=== PATIENT | male | born 1975 | race Caucasian/White ===

== ENCOUNTER 2021-06-17 18:13 | Emergency (ER) | payer OTHER ==
[~2021-06-17 18:13] MED LIST: Ketorolac 30 MG/ML SDV IVPUSH ONE
[2021-06-17] MEDS ORDERED: Sodium Chloride 0.9% 1,000 ML IV ONE (18:15)
[2021-06-17] MEDS ORDERED: Gabapentin 300 MG Cap PO ONE (18:30)
[2021-06-17] MEDS ORDERED: valACYclovir 500 MG Tab PO ONE (18:30)
[2021-06-17] MEDS ORDERED: prednisoLONE Acetate 1% Ophth Susp 5 ML Bottle EYERT SCH (18:40)
[2021-06-17] MEDS ORDERED: Gabapentin 100 MG Cap PO ONE (18:49)
--- NOTE | 2021-06-17 18:52 | EDM.PDOC ---
ED HPI GENERAL MEDICAL PROBLEM - General Chief Complaint: General Stated Complaint: Headache Time Seen by Provider: 06/17/21 18:25 Source of Information: Reports: Patient History Limitations: Reports: No Limitations - History of Present Illness INITIAL COMMENTS - FREE TEXT/NARRATIVE: Eduardo is a 45 year old male who presents to ER with complaints of severe headache since yesterday. Was seen in the ER last night in [place] for same concern. Had CT scan of head and sinus as well as labs which were all normal. As blood pressure was mildly high, was told to restart his HCTZ. Pain has been intense today and now has an infection to his eyelid as well. Denies any visual changes. Did put triple antibiotic ointment to the area today to help soothe the area. Eyelid has become red, swollen and his eye has been tearing. Has taken tylenol and ibuprofen but nothing has helped the headache. worried that he could be having a stroke. Denies any weakness in his arms or legs, no facial droop. No dysphagia. Onset: Gradual Duration: Day(s):, Constant Location: Reports: Head Quality: Reports: Burning Severity: Severe Improves with: Reports: None Associated Symptoms: Reports: Malaise. Denies: Confusion, Chest Pain, Cough, Fever/Chills, Loss of Appetite, Nausea/Vomiting, Shortness of Breath Headache Pain Score (Numeric/FACES): 7 - Related Data Allergies Allergy/AdvReac Type Severity Reaction Status Date / Time No Known Allergies Allergy Verified 06/17/21 18:21 Home Meds: Home Meds Gabapentin [Neurontin] 100 mg PO TID #60 cap 06/17/21 [Rx] hydroCHLOROthiazide [Hydrochlorothiazide] 12.5 mg PO DAILY PRN 06/17/21 [History] valACYclovir [Valtrex] 1,000 mg PO BID #14 tablet 06/17/21 [Rx] Past Medical History Cardiovascular History: Reports: Hypertension Respiratory History: Reports: Sleep Apnea Other Respiratory History: uses CPAP Musculoskeletal History: Reports: Fracture Other Musculoskeletal History: history of wrist and finger fx - Past Surgical History GI Surgical History: Reports: Appendectomy Social & Family History - Family History Family Medical History: No Pertinent Family History - Tobacco Use Tobacco Use Status *Q: Never Tobacco User ED ROS GENERAL - Review of Systems Review Of Systems: See Below Constitutional: Reports: Malaise. Denies: Fever, Chills, Weakness, Fatigue, Dec reased Appetite HEENT: Reports: Eye Pain. Denies: Ear Pain, Rhinitis, Sinus Problem, Throat Pain, Vision Change Respiratory: Denies: Shortness of Breath, Cough Cardiovascular: Denies: Chest Pain, Edema, Lightheadedness Endocrine: Denies: Fatigue GI/Abdominal: Denies: Abdominal Pain, Constipation, Diarrhea, Nausea, Vomiting : Reports: No Symptoms Musculoskeletal: Reports: No Symptoms Skin: Reports: Rash Neurological: Reports: No Symptoms Psychiatric: Reports: No Symptoms ED EXAM, GENERAL - Physical Exam Exam: See Below Exam Limited By: No Limitations General Appearance: Alert, WD/WN, Mild Distress Eye Exam: Right Eye: Conjunctival Injection, Bilateral Eye: EOMI, PERRL, Vision Changes Ears: Normal External Exam, Normal TMs Nose: Normal Inspection, Normal Mucosa, No Blood Throat/Mouth: Normal Inspection, Normal Oropharynx Head: Normocephalic Neck: Normal Inspection, Supple, Non-Tender Respiratory/Chest: No Respiratory Distress, Lungs Clear, Normal Breath Sounds Cardiovascular: Regular Rate, Rhythm Neurological: Alert, Oriented, CN II-XII Intact, Normal Cognition, Normal Gait, Normal Reflexes, No Motor/Sensory Deficits Skin Exam: Zoster-Like Rash (patient has raised red lesions to forehead, right side of head an vesicular lesions to right eye lid. Does have swelling and ) Course - Vital Signs Last Recorded V/S: Last Vital Signs Temp 97.6 F 06/17/21 18:17 Pulse 62 06/17/21 18:17 Resp 18 06/17/21 18:17 BP 161/86 H 06/17/21 18:17 Pulse Ox 95 06/17/21 18:17 - Orders/Labs/Meds Orders: Active Orders 24 hr Category Date Time Status prednisoLONE acetate [Pred Forte 1% Ophth Susp] Med 06/17/21 18:40 Ordered See Dose Instructions EYERT QID Medication Orders Prednisolone Acetate (Prednisolone Acetate 1% Ophth Susp 5 Ml Bottle) 0 ml EYERT QID STORM Meds: Medications Generic Name Dose Route Start Last Admin Trade Name Freq PRN Reason Stop Dose Admin Prednisolone Acetate 0 ml 06/17/21 18:40 Prednisolone Acetate 1% Ophth Susp 5 Ml Bottle EYERT QID STORM Discontinued Medications Generic Name Dose Route Start Last Admin Trade Name Freq PRN Reason Stop Dose Admin Gabapentin 300 mg 06/17/21 18:30 06/17/21 18:35 Gabapentin 300 Mg Cap PO 06/17/21 18:31 300 mg ONETIME ONE Administration Gabapentin 100 mg 06/17/21 18:49 Gabapentin 100 Mg Cap PO 06/17/21 18:50 ONETIME ONE Sodium Chloride 1,000 mls @ 250 mls/hr 06/17/21 18:15 Normal Saline IV 06/17/21 22:14 ONETIME ONE Ketorolac Tromethamine 30 mg 06/17/21 18:13 Ketorolac 30 Mg/Ml Sdv IVPUSH 06/17/21 18:14 ONETIME ONE Valacyclovir HCl 1,000 mg 06/17/21 18:30 06/17/21 18:35 Valacyclovir 500 Mg Tab PO 06/17/21 18:31 1,000 mg ONETIME ONE Administration - Re-Assessments/Exams Free Text/Narrative Re-Assessment/Exam: 06/17/21 Discussed zoster with patient. Will need to see an eye doctor in the am if possible for more specific exam as unable to visualize a dendritic lesion to eye. Will start prednisolone drops tonight. Departure - Departure Time of Disposition: 18:51 Disposition: Home, Self-Care 01 Condition: Fair Clinical Impression: Herpes zoster Qualifiers: Herpes zoster complications: with ocular involvement Herpes zoster ocular complication detail: conjunctivitis Qualified Code(s): B02.31 - Zoster conjunctivitis - Discharge Information *PRESCRIPTION DRUG MONITORING PROGRAM REVIEWED*: No *COPY OF PRESCRIPTION DRUG MONITORING REPORT IN PATIENT NAYELI: No Prescriptions: Gabapentin [Neurontin] 100 mg PO TID #60 cap valACYclovir [Valtrex] 1,000 mg PO BID #14 tablet Instructions: Shingles Referrals: Iraj Tavares MD [Primary Care Provider] - Forms: ED Department Discharge Additional Instructions: 1. Hydrocortisone cream to rash as needed 2. Gabapentin 100 mg~ 1 tab in am, 1 tab in afternoon, 3 at bedtime 3. Valtrex 1 gm twice a day for 7 days 4. Prednisolone 1-2 drops to right eye four times a day 5. See eye doctor as soon as able 6. Follow up if any persisting concerns. Sepsis Event Note (ED) - Evaluation Sepsis Screening Result: No Definite Risk - Focused Exam Vital Signs: Vital Signs Temp Pulse Resp BP Pulse Ox 06/17/21 18:17 97.6 F 62 18 161/86 H 95 - My Orders Last 24 Hours: My Active Orders 06/17/21 18:40 prednisoLONE acetate [Pred Forte 1% Ophth Susp] See Dose Instructions EYERT QID - Assessment/Plan Last 24 Hours: My Active Orders 06/17/21 18:40 prednisoLONE acetate [Pred Forte 1% Ophth Susp] See Dose Instructions EYERT QID
== END 2021-06-17 19:05 | disposition home or self-care (01) ==
LOC: CC.ED 18:13
DX: B02.31 Zoster conjunctivitis (principal); I10 Essential (primary) hypertension
CPT/HCPCS: 96374; 99283-25; A9270-GY